=== PATIENT | male | born 1935 | race Caucasian/White ===

== ENCOUNTER 2016-04-25 17:10 | Emergency (ER) | payer OTHER ==
[~2016-04-25] VITALS: Ht 167.6 cm; Wt 76.6 kg
[~2016-04-25 17:10] MED LIST: ARC10 PO; ASPI81TA28 PO; CLC100 PO; CLOP1TAB15 PO; CRAN1CAP3 PO; FLM4 PO; LPT/20 PO; RANI300C PO; TPRSR/25 PO; TRIA0.1C20 TOP
[2016-04-25 17:14] VITALS: Ht 167.6 cm; Wt 76.6 kg
[2016-04-25] MEDS ORDERED: PRS5 PO (17:45)
[2016-04-25 18:37] LABS: URINE APPEARANCE CLEAR (CLEAR); URINE BILIRUBIN NEG (NEG); URINE COLOR YELLOW; URINE EPITHELIAL CELL AUTO >30 /lpf (0-5); URINE NITRITE NEG (NEG); URINE SPECIFIC GRAVITY 1.012 (1.000-1.030); UROBILINOGEN NEG (NEG); ZZUR CULT IF INDIC CLEAN CATCH NO
[2016-04-25 18:41] LABS: MANUAL MICROSCOPIC REQUIRED? NO; REVIEW REQ? YES
[2016-04-25 19:04] LABS: BENZODIAZEPINE, URINE NEG (NEG); COCAINE,URINE NEG (NEG); PHENCYCLIDINE, URINE NEG (NEG)
--- NOTE | 2016-04-25 19:09 | DIAGNOSTIC IMAGING REPORT ---
HEAD CT NONCONTRAST CT DOSE: 687.98 mGy.cm HISTORY: hallucinations TECHNIQUE: Multiaxial CT images of the head were performed without the use of intravenous contrast. Automated exposure control was utilized for this study. Comparison: Head CT 12/06/2015. Findings: The paranasal sinuses and mastoid air cells are clear. The calvarium and skull base are intact. There is no mass, hematoma, midline shift, acute infarct. White matter hypodensity is nonspecific but suggestive of microvascular ischemic change. The ventricles and sulci demonstrate mild age-related involutional changes. Impression: No significant change compared to the prior study. No acute intracranial abnormality. Electronically signed by: Luis Felipe Matta M.D. 04/25/2016 7:07 PM Dictated Date/Time: 04/25/2016 7:02 PM
[2016-04-25 19:18] LABS: BASO % 0.2 %; BASO ABS # 0.01 K/uL (0-0.2); COMPLETE YES; EOS % 0.4 %; HEMATOCRIT 36.9 % (42-52); IG% 0.4 %; LYMPH % 41.4 %; MEAN CELL VOLUME 92.5 fL (80-100); MEAN CORPUSCULAR HEMOGLOBIN 31.8 pg (25-34); MEAN CORPUSCULAR HGB CONC 34.4 g/dl (32-36); MEAN PLATELET VOLUME 10.2 fL (7.4-10.4); MONO % 14.5 %; NEUT % 43.1 %; PLATELET COUNT 175 K/uL (130-400); RED BLOOD COUNT 3.99 M/uL (4.7-6.1); WHITE BLOOD COUNT 4.83 K/uL (4.8-10.8)
[2016-04-25 19:39] LABS: ACETAMINOPHEN < 2 ug/ml (10-30)
[2016-04-25 19:42] LABS: BUN/CREATININE RATIO 7.4 (10-20); CREATININE 1.7 mg/dl (0.60-1.40); POTASSIUM 3.8 mmol/L (3.5-5.1)
[2016-04-25 19:52] LABS: ALB/GLOB RATIO 1.1 (0.9-2); THYROID STIMULATING HORMONE 1.15 uIu/ml (0.300-4.500)
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
[2016-04-26 01:04] VITALS: BP 122/81; PULSE 94; TEMP 36.7; O2SAT 96
[2016-04-29 19:35] LABS: SYNTHETIC CANNABINOIDS QL URIN NEGATIVE (Negative)
[2016-07-05] MEDS ORDERED: QUET1TAB32 PO (08:03)
[2016-07-05] MEDS ORDERED: FINA5TAB PO (08:03)
[2016-07-05] MEDS ORDERED: CLOP1TAB15 PO (08:03)
[2016-07-05] MEDS ORDERED: ASPCH81X PO (08:03)
[2016-07-05] MEDS ORDERED: DOCU100T7 PO (08:03)
[2016-07-05] MEDS ORDERED: VITAMIN C PO (08:03)
[2016-07-05] MEDS ORDERED: ATOR-22 PO (08:03)
[2016-07-05] MEDS ORDERED: DONE10TA12 PO (08:03)
[2016-07-11] MEDS ORDERED: BROM1SOL8 (07:18)
[2016-07-11] MEDS ORDERED: PRDFOPS (07:18)
[2016-07-11] MEDS ORDERED: OFLO0.3S4 (07:18)
[2016-07-20] MEDS ORDERED: BROM0.0911 OPL (09:37)
[2016-07-20] MEDS ORDERED: PRED1SUS OPL (09:37)
== END 2016-04-26 01:05 ==
LOC: C.EDB 17:11 → C.EDA 04-26 01:05
DX: R45.851 Suicidal ideations (principal); R44.0 Auditory hallucinations; R44.1 Visual hallucinations; I10 Essential (primary) hypertension; E78.00 Pure hypercholesterolemia, unspecified; I25.10 Atherosclerotic heart disease of native coronary artery without angina pectoris; Z95.0 Presence of cardiac pacemaker; Z98.890 Other specified postprocedural states; Z79.82 Long term (current) use of aspirin; Z79.899 Other long term (current) drug therapy; Z88.0 Allergy status to penicillin; Z88.2 Allergy status to sulfonamides; Z88.5 Allergy status to narcotic agent; Z91.040 Latex allergy status; Z80.9 Family history of malignant neoplasm, unspecified; Z82.49 Family history of ischemic heart disease and other diseases of the circulatory system

== ENCOUNTER 2016-06-30 10:25 | Emergency (ER) | payer OTHER ==
[~2016-06-30 10:25] MED LIST changes: +PRS5 PO
[2016-06-30 10:31] VITALS: TEMP 36.6
[2016-06-30] MEDS ORDERED: TAMS0.4C38 PO (11:10)
[2016-06-30] MEDS ORDERED: DOCU-94 PO (11:10)
[2016-06-30] MEDS ORDERED: TRMCR130WC TOP (11:10)
[2016-06-30] MEDS ORDERED: NMN10 PO (11:10)
[2016-06-30] MEDS ORDERED: VITACAP26 PO (11:10)
[2016-06-30] MEDS ORDERED: QUET5TAB PO (11:12)
[2016-06-30] MEDS ORDERED: ASCA500 PO (11:13)
--- NOTE | 2016-06-30 11:34 | DIAGNOSTIC IMAGING REPORT ---
HEAD CT NONCONTRAST CT DOSE: 537.48 mGy.cm HISTORY: Mental status change near syncope TECHNIQUE: Multiaxial CT images of the head were performed without the use of intravenous contrast. Comparison: 04/25/2016 Findings: The paranasal sinuses and mastoid air cells are clear. The calvarium and skull base are intact. The ventricles and sulci are within normal limits. There is no mass, hematoma, midline shift, or acute infarct. Age-related chronic small vessel change Impression: No acute intracranial abnormality. Stable age-related chronic small vessel change Electronically signed by: Natan Mary M.D. 06/30/2016 11:32 AM Dictated Date/Time: 06/30/2016 11:32 AM
--- NOTE | 2016-06-30 11:35 | DIAGNOSTIC IMAGING REPORT ---
CHEST 1 VW FRONT-NOT PORTABLE CLINICAL HISTORY: near syncope dyspnea COMPARISON STUDY: 04/13/2014 FINDINGS: Lungs are clear. No evidence for cardiac enlargement. Bipolar cardiac pacemaker. IMPRESSION: No acute process. Electronically signed by: Natan Mary M.D. 06/30/2016 11:34 AM Dictated Date/Time: 06/30/2016 11:33 AM
[2016-06-30 11:44] LABS: BASO % 0.2 %; BASO ABS # 0.01 K/uL (0-0.2); COMPLETE YES; EOS % 0.4 %; HEMATOCRIT 37.5 % (42-52); IG% 2.3 %; LYMPH % 35.7 %; LYMPH ABS # 1.73 K/uL (1.2-3.4); MEAN CELL VOLUME 92.6 fL (80-100); MEAN CORPUSCULAR HEMOGLOBIN 30.9 pg (25-34); MEAN CORPUSCULAR HGB CONC 33.3 g/dl (32-36); MEAN PLATELET VOLUME 9.8 fL (7.4-10.4); MONO % 14.7 %; NEUT % 46.7 %; PLATELET COUNT 152 K/uL (130-400); RED BLOOD COUNT 4.05 M/uL (4.7-6.1); WHITE BLOOD COUNT 4.84 K/uL (4.8-10.8)
--- NOTE | 2016-06-30 11:44 | EMERGENCY ROOM VISIT NOTE ---
History Report prepared by Nuzhat: Lauren Flaherty Under the Supervision of: Dr. Phuong Schwab D.O. First contact with patient: 10:28 Chief Complaint: SYNCOPE (NEAR SYNCOPE) Stated Complaint: NER SYNCOPE History of Present Illness The patient is a 80 year old male who presents to the Emergency Room with complaints of a sudden episode of near-syncope that occurred 45 minutes MOLD BUNCH TRIMMER. The patient came to the ED via ambulance. Per the patient's daughter, the patient has dementia. The patient states that he was standing and leaning against the wall at the [facility] this morning when he became lightheaded and diaphoretic. The patient's vision then became cloudy and he felt like he was going to experience syncope. He sat down and did not experience LOC. The patient states that he feels well now, but his vision is "still not right." He adds that he is supposed to have cataract surgery done at the end of this month. He denies experiencing any headaches or chest pain prior to becoming lightheaded. He also denies fevers, abdominal pain, nausea, and vomiting. The patient ate breakfast this morning around 0730. The patient states that he has experienced similar symptoms multiple times in the past. He is unsure of how often the episodes happen. He is also experiencing increased lachrymation and rhinorrhea. The patient states that his bowel movements have been normal. The patient states that he was seen in the ED in March for "loud music" in his right ear. The patient's daughter states that the patient went to [facility] for a psych evaluation at the beginning of April for visual and auditory hallucinations. The patient spent one week there and was started on new medications. He was experiencing his current symptoms at that time too, but he did not tell the doctors. The patient states that they gave him a pill and the pill relieved all of his symptoms. He adds that he has been experiencing problems with his bilateral ears since he was little. The patient's daughter states that the patient is on a psych medication that was a combined pill, but one month ago the patient's doctor the two pills and he takes them individually now. The patient's daughter manages his medications. The patient's daughter adds that the patient has been complaining of dizziness and lightheadedness for a long time. He has been worked up for his symptoms in the past. The patient's daughter states that the patient has a pacemaker in place, which was originally placed in 2007, but a new one was put in last July. She suspects that he is experiencing orthostatic hypotension. The patient was an alcoholic for years and formerly smoked heavily, but his daughter reports that he has not smoked or drank alcohol since 1973. Source of History: patient, family (daughter) Onset: 45 minutes MOLD BUNCH TRIMMER Position: other (global) Quality: other (near-syncope) Timing: other (sudden episode) Associated Symptoms: + diaphoresis, No LOC, No abdominal pain, No chest pain , No fevers, No headache, No nausea, No vomiting Note: lightheadedness, cloudy vision, increased lachrymation, rhinorrhea Review of Systems See HPI for pertinent positives & negatives. A total of 10 systems reviewed and were otherwise negative. Past Medical & Surgical Medical Problems: (1) CAD (coronary artery disease) (2) High cholesterol (3) History of orthopedic surgery (4) HTN (hypertension) (5) Pacemaker Surgical Problems: (1) H/O hernia repair (2) Hx of cardiac cath Family History Cancer Heart disease Hypertension Social History Smoking Status: Never Smoker Alcohol Use: none Marital Status: Housing Status: lives alone Occupation Status: retired Current/Historical Medications Scheduled Ascorbic Acid (Vitamin C), 1 TAB PO DAILY Aspirin (Aspirin Ec), 81 MG PO DAILY Atorvastatin (Atorvastatin Calcium), 20 MG PO DAILY Clopidogrel (Plavix), 75 MG PO DAILY Docusate Sodium (Colace), 1 CAP PO DAILY Donepezil HCl (Donepezil HCl), 10 MG PO DAILY Finasteride (Finasteride), 5 MG PO DAILY Memantine (Namenda), 10 MG PO DAILY Metoprolol Succinate (Metoprolol Succinate ER), 25 MG PO DAILY Quetiapine Fumarate (Seroquel), 1 TAB PO DAILY Ranitidine Hcl (Ranitidine Hcl), 300 MG PO DAILY Tamsulosin Hcl (Flomax), 0.4 MG PO DAILY Triamcinolone Acet (Aristocort 0.1%), 1 APPLN TOP UD Allergies Coded Allergies: Codeine (Verified Allergy, Unknown, 04/25/16) Latex1 -Allergic Contact Dermititis (Verified Allergy, Unknown, 04/25/16) Penicillins (Verified Allergy, Unknown, 04/25/16) Sulfa Drugs (Verified Allergy, Unknown, 04/25/16) Physical Exam Vital Signs Date Time Temp Pulse Resp B/P Pulse Ox O2 Delivery O2 Flow Rate FiO2 06/30/16 15:01 76 18 141/83 99 06/30/16 12:40 89 18 159/84 98 Room Air 06/30/16 10:50 79 06/30/16 10:31 36.6 76 18 172/113 100 Room Air Physical Exam GENERAL: alert, well appearing, well nourished, no distress, non-toxic EYE EXAM: normal conjunctiva, increased lachrymation, PERRL and EOM's grossly intact NOSE: mild clear rhinorrhea OROPHARYNX: no exudate, no erythema, lips, buccal mucosa, and tongue normal and mucous membranes are moist NECK: supple, no nuchal rigidity, no adenopathy, non-tender LUNGS: Clear to auscultation. Normal chest wall mechanics HEART: device present left anterior superior chest wall, no murmurs, S1 normal and S2 normal ABDOMEN: abdomen soft, non-tender, normo-active bowel sounds, no masses, no rebound or guarding. BACK: Back is symmetrical on inspection and there is no deformity, no midline tenderness, no CVA tenderness. SKIN: no rashes and no bruising UPPER EXTREMITIES: upper extremities are grossly normal. LOWER EXTREMITIES: No pitting edema. NEURO EXAM: Normal sensorium, cranial nerves II-XII intact, normal speech, no facial droop, no weakness of arms, no weakness of legs. No ataxia. No drift. Finger to nose intact. Medical Decision & Procedures ER Provider Diagnostic Interpretation: Xray results per the radiologist and my interpretation. Other results have been interpreted by the radiologist and reviewed by me. CHEST 1 VW FRONT-NOT PORTABLE IMPRESSION: No acute process. Electronically signed by: Natan Mary M.D. 06/30/2016 11:34 AM Dictated Date/Time: 06/30/2016 11:[address] NONCONTRAST Impression: No acute intracranial abnormality. Stable age-related chronic small vessel change Electronically signed by: Natan Mary M.D. 06/30/2016 11:32 AM Dictated Date/Time: 06/30/2016 11:32 AM Laboratory Results 06/30/16 11:25 Red Blood Count 4.05, Mean Corpuscular Volume 92.6, Mean Corpuscular Hemoglobin 30.9, Mean Corpuscular Hemoglobin Concent 33.3, Mean Platelet Volume 9.8, Neutrophils (%) (Auto) 46.7, Lymphocytes (%) (Auto) 35.7, Monocytes (%) (Auto) 14.7, Eosinophils (%) (Auto) 0.4, Basophils (%) (Auto) 0.2, Neutrophils # (Auto ) 2.26, Lymphocytes # (Auto) 1.73, Monocytes # (Auto) 0.71, Eosinophils # (Auto ) 0.02, Basophils # (Auto) 0.01 06/30/16 11:25 Test 06/30/16 11:00 06/30/16 11:25 06/30/16 12:40 Influenza Type A Antigen Neg for Influ A (NEG) Influenza Type B Antigen Neg for Influ B (NEG) White Blood Count 4.84 K/uL (4.8-10.8) Red Blood Count 4.05 M/uL (4.7-6.1) Hemoglobin 12.5 g/dL (14.0-18.0) Hematocrit 37.5 % (42-52) Mean Corpuscular Volume 92.6 fL (80-100) Mean Corpuscular Hemoglobin 30.9 pg (25-34) Mean Corpuscular Hemoglobin Concent 33.3 g/dl (32-36) Platelet Count 152 K/uL (130-400) Mean Platelet Volume 9.8 fL (7.4-10.4) Neutrophils (%) (Auto) 46.7 % Lymphocytes (%) (Auto) 35.7 % Monocytes (%) (Auto) 14.7 % Eosinophils (%) (Auto) 0.4 % Basophils (%) (Auto) 0.2 % Neutrophils # (Auto) 2.26 K/uL (1.4-6.5) Lymphocytes # (Auto) 1.73 K/uL (1.2-3.4) Monocytes # (Auto) 0.71 K/uL (0.11-0.59) Eosinophils # (Auto) 0.02 K/uL (0-0.5) Basophils # (Auto) 0.01 K/uL (0-0.2) RDW Standard Deviation 45.2 fL (36.4-46.3) RDW Coefficient of Variation 13.3 % (11.5-14.5) Immature Granulocyte % (Auto) 2.3 % Immature Granulocyte # (Auto) 0.11 K/uL (0.00-0.02) Anion Gap 7.0 mmol/L (3-11) Estimated GFR () 49.5 Estimated GFR (Non- 42.7 BUN/Creatinine Ratio 8.1 (10-20) Calcium Level 9.1 mg/dl (8.5-10.1) Total Bilirubin 0.4 mg/dl (0.2-1) Aspartate Amino Transf (AST/SGOT) 37 U/L (15-37) Alanine Aminotransferase (ALT/SGPT) 46 U/L (12-78) Alkaline Phosphatase 96 U/L (45-117) Troponin I < 0.015 ng/ml (0-0.045) Total Protein 7.5 gm/dl (6.4-8.2) Albumin 3.9 gm/dl (3.4-5.0) Globulin 3.6 gm/dl (2.5-4.0) Albumin/Globulin Ratio 1.1 (0.9-2) Thyroid Stimulating Hormone (TSH) 0.960 uIu/ml (0.300-4.500) Urine Color YELLOW Urine Appearance CLEAR (CLEAR) Urine pH 8.0 (4.5-7.5) Urine Specific [place] 1.015 (1.000-1.030) Urine Protein NEG (NEG) Urine Glucose (UA) NEG (NEG) Urine Ketones NEG (NEG) Urine Occult Blood TRACE (NEG) Urine Nitrite NEG (NEG) Urine Bilirubin NEG (NEG) Urine Urobilinogen NEG (NEG) Urine Leukocyte Esterase NEG (NEG) Urine WBC (Auto) 1-5 /hpf (0-5) Urine RBC (Auto) 0-4 /hpf (0-4) Urine Hyaline Casts (Auto) 5-10 /lpf (0-5) Urine Epithelial Cells (Auto) >30 /lpf (0-5) Urine Bacteria (Auto) NEG (NEG) Laboratory results per my review. ECG Indication: syncope Rate (beats per minute): 63 Rhythm: other (AV paced) Findings: left axis deviation, other (prolonged QRS and QTc consistent with pacemaker) Comparison ECG Date: 04/13/2014 Change: no significant change ED Course 1030: The patient was evaluated in room A9. A complete history and physical exam was performed. 1205: I reassessed the patient. He is still resting comfortably and he has not complaints. The patient's family states that the dizzy spells have been going on for years and today does not seem any different than previous episodes. 1443: Repeat bedside evaluation unchanged. Patient denies any complaints, was able to ambulate independently without incident. Vital signs stable, patient remains hypertensive but within acceptable limits. Bedside discussion with family regarding patient's condition. They would like to take patient home and follow-up as an outpatient. One of them does intend to stay with the patient and his apartment tonight. Discussed with him symptoms to watch and return for , need for close follow-up with family doctor, they verbalized understanding were agreeable with plan. Medical Decision Differential diagnosis: Etiologies such as CVA/TIA, ACS, dehydration, electrolyte abnormality, as well as others were entertained. Pt well appearing here, no recurrent sx. Family felt strongly sx similar to prior events which have been going on for several years. They feel likely related to position changes, dehydration. Offered admission, family declined. Doubt occult infection, acs, dysrhythmia, dissection, bacteremia/sepsis, tamponade, effusion, ARF, cva/tia, sah, occult trauma. Pt ambulated here without incident, family would like to take him home, they plan on staying with him tonight. Discussed close f/u with PCP, sx to watch/return for, they verbalized understanding and were agreeable with plan. Impression Primary Impression: Near syncope Scribe Attestation The scribe's documentation has been prepared under my direction and personally reviewed by me in its entirety. I confirm that the note above accurately reflects all work, treatment, procedures, and medical decision making performed by me. Departure Information Dispostion Home / Self-Care Referrals Cristin Mcrae D.O. (PCP) Forms HOME CARE DOCUMENTATION FORM, IMPORTANT VISIT INFORMATION Patient Instructions My [facility] Additional Instructions Please continue regular medications as prescribed. Please call and follow-up family doctor. Please eat and drink regularly. If you have any new or concerning symptoms, please return to the emergency room. Please try to change positions very slowly to help prevent any more episodes of lightheadedness or dizziness. If you have any recurrences of these symptoms, please sit down or lay down immediately and call for help. If you develop any chest pain, trouble breathing, fevers, vomiting, swelling in the legs, headaches, vision changes, or any other concerning symptoms, please return to the emergency room.
[2016-06-30 11:53] LABS: ALT/SGPT 46 U/L (12-78); BLOOD UREA NITROGEN 12 mg/dl (7-18); BUN/CREATININE RATIO 8.1 (10-20); CALCIUM 9.1 mg/dl (8.5-10.1); CARBON DIOXIDE 30 mmol/L (21-32); CHLORIDE 105 mmol/L (98-107); GLUCOSE 112 mg/dl (70-99); POTASSIUM 3.8 mmol/L (3.5-5.1); SODIUM 142 mmol/L (136-145)
[2016-06-30 12:03] LABS: ALB/GLOB RATIO 1.1 (0.9-2); ALKALINE PHOSPHATASE 96 U/L (45-117); AST/SGOT 37 U/L (15-37)
[2016-06-30 13:36] LABS: URINE APPEARANCE CLEAR (CLEAR); URINE BILIRUBIN NEG (NEG); URINE COLOR YELLOW; URINE NITRITE NEG (NEG); URINE SPECIFIC GRAVITY 1.015 (1.000-1.030); UROBILINOGEN NEG (NEG)
[2016-06-30 13:37] LABS: MANUAL MICROSCOPIC REQUIRED? NO; REVIEW REQ? YES
[2016-06-30 14:27] LABS: URINE EPITHELIAL CELL AUTO >30 /lpf (0-5)
[2016-06-30 14:28] LABS: ZZUR CULT IF INDIC CLEAN CATCH NO
[2016-06-30 15:01] VITALS: BP 141/83; PULSE 76; O2SAT 99
[2016-07-05] MEDS ORDERED: DOCU100T7 PO (08:03)
[2016-07-05] MEDS ORDERED: DONE10TA12 PO (08:03)
[2016-07-05] MEDS ORDERED: ATOR-22 PO (08:03)
[2016-07-05] MEDS ORDERED: VITAMIN C PO (08:03)
[2016-07-05] MEDS ORDERED: CLOP1TAB15 PO (08:03)
[2016-07-05] MEDS ORDERED: QUET1TAB32 PO (08:03)
[2016-07-05] MEDS ORDERED: ASPCH81X PO (08:03)
[2016-07-05] MEDS ORDERED: FINA5TAB PO (08:03)
[2016-07-11] MEDS ORDERED: BROM1SOL8 (07:18)
[2016-07-11] MEDS ORDERED: OFLO0.3S4 (07:18)
[2016-07-11] MEDS ORDERED: PRDFOPS (07:18)
[2016-07-20] MEDS ORDERED: BROM0.0911 OPL (09:37)
[2016-07-20] MEDS ORDERED: PRED1SUS OPL (09:37)
== END 2016-06-30 15:02 | disposition home or self-care (01) ==
LOC: EDBD 10:25 → C.EDA 10:25
DX: R55 Syncope and collapse (principal); I10 Essential (primary) hypertension; E78.00 Pure hypercholesterolemia, unspecified; I25.10 Atherosclerotic heart disease of native coronary artery without angina pectoris; Z95.0 Presence of cardiac pacemaker; Z98.890 Other specified postprocedural states; Z79.82 Long term (current) use of aspirin; Z79.899 Other long term (current) drug therapy; Z88.0 Allergy status to penicillin; Z88.2 Allergy status to sulfonamides; Z88.5 Allergy status to narcotic agent; Z91.040 Latex allergy status; Z80.9 Family history of malignant neoplasm, unspecified; Z82.49 Family history of ischemic heart disease and other diseases of the circulatory system

== ENCOUNTER → 2016-07-11 | Day surgery (SDC) | payer OTHER ==
[2016-07-05 08:04] VITALS: Ht 172.7 cm; Wt 75.0 kg
[~2016-07-11] VITALS: Ht 172.7 cm; Wt 75.0 kg
[~2016-07-11] MED LIST changes: +500ML BSS 0.3ML EPI 1:1000PF IRRIG ONE; +ACETAMINOPHEN 325 MG TAB PO PRN; +AMVISC PLUS 0.8ML SYRINGE INT OCU ONE; -ARC10 PO; +ASPCH81X PO; -ASPI81TA28 PO; +ATOR-22 PO; +ATROPINE SULFATE 0.1 MG/ML 5ML SYR IV PRN; +BROM0.0911 OPL; +BROM1SOL8; +BSS FLUSH ONE; -CLC100 PO; -CRAN1CAP3 PO; +DOCU100T7 PO; +DONE10TA12 PO; +ENDOCOAT 0.85ML SYRINGE INT OCU ONE; +EpHEDrine SULFATE INJ 50 MG/ML AMP IV PRN; +EpINEphrine INJ 1MG/ML AMP 1 MG/ML AMP ONE; +FINA5TAB PO; -FLM4 PO; +LACTATED RINGER'S 1000ML 500 ML IV SCH; +LIDOCAINE 4% OP SOLN DROP CHARGE ONE; +LIDOCAINE 4% OP SOLN DROP CHARGE OPL SCH; +LIDOCAINE HCL 1% MPF 2 ML VIAL ONE; -LPT/20 PO; +MIDAZOLAM HCL 1 MG/ML 2ML VIAL ONE; +MIX: 4ML BSS 1ML EPI 1:1000 PF TOP ONE; +MOXIFLOXACIN OPH SOLN PER DROP CHARGE ONE; +NMN10 PO; +OFLO0.3S4; +POVIDONE-IODINE OP SOLN 30 ML BTL ONE; +PRDFOPS; +PRED1SUS OPL; +PROPARACAINE 0.5% OP SOLN PER DROP CHARGE OPL SCH; -PRS5 PO; +QUET1TAB32 PO; +TAMS0.4C38 PO; +TOBRAMYCIN/DEXAMETHASONE OPH OINT PER APPLN CHARGE ONE; -TRIA0.1C20 TOP; +VITAMIN C PO
[2016-07-11] MEDS: PHENYLEPHRINE HCL 10% OP SOLN 5 ML BTL OPL SCH ×3 (07:31→07:41)
--- NOTE | 2016-07-11 07:31 | History & Physical Bridge - SC ---
H&P Re-Evaluation Bridge Note: I have examined the patient, reviewed the History & Physical and in the interval since the performance of the History & Physical I have noted the following changes of clinical significance: No changes noted
[2016-07-11] MEDS: TROPICAMIDE 1% OP SOLN PER DROP CHARGE OPL SCH ×3 (07:32→07:42)
[2016-07-11] MEDS: CYCLOPENTOLATE HCL 1% OP SOLN PER DROP CHARGE OPL SCH ×3 (07:33→07:43)
[2016-07-11] MEDS: MOXIFLOXACIN OPH SOLN PER DROP CHARGE OPL SCH ×3 (07:35→07:44)
--- NOTE | 2016-07-11 08:34 | [facility] Post Operative Brief Note ---
Immediate Operative Summary Operative Date Jul 11, 2016. Pre-Operative Diagnosis Cataract Left Eye Post-Operative Diagnosis Same Procedure(s) Performed Left Cataract Phacoemulsification With Intraocular Lens Implant Surgeon Dr. Cedeno Organizational Research Consultant Surgeon(s) None Estimated Blood Loss 0 Findings left cataract Specimens None Complication(s) None Disposition
[2016-07-11 08:35] VITALS: TEMP 36.4
--- NOTE | 2016-07-11 08:36 | [facility] Operative Report ---
Operative Report Date of Service Jul 11, 2016. Operative Report Phaco with monofocal IOL DATE OF OPERATION: 07/11/16 PREOPERATIVE DIAGNOSIS: Senile nuclear cataract, left eye POSTOPERATIVE DIAGNOSIS: Senile nuclear cataract, left eye PROCEDURE PERFORMED: Phacoemulsification with intraocular lens implantation, left eye SURGEON: Dr. Chris Cedeno ANESTHESIA: Topical with 1% intracameral lidocaine and monitored anesthesia care COMPLICATIONS: None DESCRIPTION OF PROCEDURE: After positively identifying the patient both verbally and by wristband in the preoperative area, the left eye was marked as the operative eye. The patient was then brought back to the operating room by the anesthesia and nursing staff where they were given a drop of Lidocaine and betadine into the operative eye. They were then sterilely prepped and draped in the standard fashion typical for ophthalmic surgery. Steri-strips were placed along the upper eyelids to keep the lashes back, and a lid speculum was placed into the operative eye. At this point, a documented time out was performed with members of the ophthalmology, nursing, and anesthesia staffs all agreeing upon the correct patient, correct location for surgery, correct procedure, and correct type and power of intraocular lens to be implanted. The microscope was then swung into position. First, a paracentesis wound was made using a sideport blade. Then, in sequence, 1% preservative-free lidocaine followed by Endocoat viscoelastic was injected into the anterior chamber. Next , the main incision was made with a keratome blade in triplanar fashion. A Malyugin ring was inserted due to poor pupil dilation. A sharp cystotome was introduced into the eye and used to create a tear in the anterior capsule, which was directed into a continuous curvilinear capsulorrhexis using Utrata forceps. Hydrodissection was then performed with BSS on a flat-tip cannula. Next, the phacoemulsification handpiece was introduced into the eye and used to remove the nucleus in a pahtwd-[id number] fashion. This was done without complication and then the irrigation-aspiration handpiece was introduced into the eye and used to remove all remaining cortical and epinuclear material. Amvisc was then injected into the anterior chamber as well as into the capsular bag and using the lens injector system, an MX60 20.5 D lens, serial number [id number], and expiration date 03/2019 was injected into the capsular bag and rotated into the correct position. The Malyugin ring was removed. Next, the irrigation-aspiration handpiece was used to remove all remaining Amvisc. BSS was used to hydrate the main wound, and then BSS was injected into the paracentesis site to reach physiologic pressure and then the main wound was checked and found to be watertight. The patient was given drops of Vigamox and Tobradex ointment into the operative eye, and then the surrounding area was cleaned and dried. A clear plastic shield was placed over the eye and the patient was then sat up and taken from the operating room by the anesthesia staff having tolerated the procedure well and suffering no complications. DISPOSITION: The patient was returned to the recovery room in stable condition. I attest to the content of the Intraoperative Record and any orders documented therein. Any exceptions are noted below.
--- NOTE | 2016-07-11 08:37 | Discharge Instructions-SurgCtr ---
Discharge Instructions Date of Service Jul 11, 2016. Visit Reason for Visit: Cataract Left Eye Discharge Discharge Diagnosis / Problem: left cataract Discharge Goals Goal(s): Decrease discomfort, Improve function Activity Recommendations Activity Limitations: as noted below Anesthesia . Post Anesthesia Instructions: If you have had General Anesthesia or IV Sedation: * Do not drive today. * Resume driving when surgeon permits. * Do not make important decisions or sign legal documents today. * Call surgeon for: 1. Temperature elevations greater than 101 degrees F. 2. Uncontrollable pain. 3. Excessive bleeding. 4. Persistent nausea and vomiting. 5. Medication intolerance (nausea, vomiting or rash). * For nausea and vomiting use only clear liquids such as: tea, soda, bouillon until nausea subsides, then gradually increase diet as tolerated. * If you have any concerns or questions, call your surgeon's office. If physician is unavailable and it is an emergency, call 911 or go to the nearest emergency room. . Instructions / Follow-Up Instructions / Follow-Up ACTIVITY RECOMMENDATIONS: * Light activities. * You may walk outside, read, watch television. * You may notice redness on the white part of the eye and some blurry vision - this is normal. MEDICATIONS: Resume previous medications unless instructed otherwise by your surgeon. Start all eye drops at 10:30 am today: * Eye drops (today): Prednisone - one drop in operative eye every 2 hours while awake Ofloxacin - one drop in operative eye every 2 hours while awake Bromfenac - one drop in operative eye daily SPECIAL CARE INSTRUCTIONS: * Tape plastic shield over eye to sleep at night. Call your doctor at with any concerns or problems. FOLLOW UP VISIT: Follow-up with Dr Cedeno at [facility] as scheduled. Diet Recommendations Home Diet: no limitations Procedures Procedures Performed: Left Cataract Phacoemulsification With Intraocular Lens Implant Pending Studies Studies pending at discharge: no Medical Emergencies . Who to Call and When: Medical Emergencies: If at any time you feel your situation is an emergency, please call 911 immediately. . Non-Emergent Contact Non-Emergency issues call your: Surgeon . . "Provider Documentation" section prepared by Chris Cedeno.
--- NOTE | 2016-07-11 08:53 | Anesthesia Progress Nt - [facility] ---
Anesthesia Post Op Note Date & Time Jul 11, 2016 at 08:54 Vital Signs Pain Intensity: 0 Vital Signs Past 12 Hours Date Time Temp Pulse Resp B/P Pulse Ox O2 Delivery O2 Flow Rate FiO2 07/11/16 08:35 36.4 61 14 151/76 97 Room Air 07/11/16 07:19 36.4 63 16 129/79 99 Room Air Notes Mental Status: alert / awake / arousable, participated in evaluation Pt Amnestic to Procedure: Yes Nausea / Vomiting: adequately controlled Pain: adequately controlled Airway Patency, RR, SpO2: stable & adequate BP & HR: stable & adequate Hydration State: stable & adequate Anesthetic Complications: no major complications apparent
[2016-07-11 09:02] VITALS: PULSE 66; O2SAT 96
[2016-07-11 09:04] VITALS: BP 153/100
== END | disposition home or self-care (01) ==
LOC: X.SURG 06:59
PROVIDERS: ATTEND Ophthalmology
DX: H25.12 Age-related nuclear cataract, left eye (principal); H57.8 Other specified disorders of eye and adnexa

== ENCOUNTER → 2016-07-25 | Day surgery (SDC) | payer OTHER ==
[2016-07-20 09:39] VITALS: Ht 172.7 cm; Wt 75.0 kg
[~2016-07-25] VITALS: Ht 172.7 cm; Wt 75.0 kg
[~2016-07-25] MED LIST changes: -BROM1SOL8; -EpHEDrine SULFATE INJ 50 MG/ML AMP IV PRN; -LIDOCAINE 4% OP SOLN DROP CHARGE OPL SCH; +LIDOCAINE 4% OP SOLN DROP CHARGE OPR SCH; -OFLO0.3S4; -PRDFOPS; -PROPARACAINE 0.5% OP SOLN PER DROP CHARGE OPL SCH; +PROPARACAINE 0.5% OP SOLN PER DROP CHARGE OPR SCH
[2016-07-25] MEDS: PHENYLEPHRINE HCL 2.5% OP SOLN PER DROP CHARGE OPR SCH ×3 (07:01→07:10)
[2016-07-25] MEDS: TROPICAMIDE 1% OP SOLN PER DROP CHARGE OPR SCH ×3 (07:02→07:12)
[2016-07-25] MEDS: CYCLOPENTOLATE HCL 1% OP SOLN PER DROP CHARGE OPR SCH ×3 (07:03→07:13)
[2016-07-25] MEDS: MOXIFLOXACIN OPH SOLN PER DROP CHARGE OPR SCH ×3 (07:04→07:14)
--- NOTE | 2016-07-25 08:03 | [facility] Post Operative Brief Note ---
Immediate Operative Summary Operative Date Jul 25, 2016. Pre-Operative Diagnosis Cataract right eye Post-Operative Diagnosis same Procedure(s) Performed Right Cataract Phacoemulsification With Intraocular Lens Implant Surgeon Dr Cedeno Knitting Teacher Surgeon(s) 0 Estimated Blood Loss 0 Findings right cataract Specimens 0 Complication(s) None Disposition
[2016-07-25 08:04] VITALS: TEMP 36.6
--- NOTE | 2016-07-25 08:04 | [facility] Operative Report ---
Operative Report Date of Service Jul 25, 2016. Operative Report Phaco with monofocal IOL DATE OF OPERATION: 07/25/16 PREOPERATIVE DIAGNOSIS: Senile nuclear cataract, right eye POSTOPERATIVE DIAGNOSIS: Senile nuclear cataract, right eye PROCEDURE PERFORMED: Phacoemulsification with intraocular lens implantation, right eye SURGEON: Dr. Chris Cedeno ANESTHESIA: Topical with 1% intracameral lidocaine and monitored anesthesia care COMPLICATIONS: None DESCRIPTION OF PROCEDURE: After positively identifying the patient both verbally and by wristband in the preoperative area, the right eye was marked as the operative eye. The patient was then brought back to the operating room by the anesthesia and nursing staff where they were given a drop of Lidocaine and betadine into the operative eye. They were then sterilely prepped and draped in the standard fashion typical for ophthalmic surgery. Steri-strips were placed along the upper eyelids to keep the lashes back, and a lid speculum was placed into the operative eye. At this point, a documented time out was performed with members of the ophthalmology, nursing, and anesthesia staffs all agreeing upon the correct patient, correct location for surgery, correct procedure, and correct type and power of intraocular lens to be implanted. The microscope was then swung into position. First, a paracentesis wound was made using a sideport blade. Then, in sequence, 1% preservative-free lidocaine followed by Endocoat viscoelastic was injected into the anterior chamber. Next , the main incision was made with a keratome blade in triplanar fashion. A Malyugin ring was inserted due to poor pupil dilation. A sharp cystotome was introduced into the eye and used to create a tear in the anterior capsule, which was directed into a continuous curvilinear capsulorrhexis using Utrata forceps. Hydrodissection was then performed with BSS on a flat-tip cannula. Next, the phacoemulsification handpiece was introduced into the eye and used to remove the nucleus in a glbsit-yuw-[id number] fashion. This was done without complication and then the irrigation-aspiration handpiece was introduced into the eye and used to remove all remaining cortical and epinuclear material. Amvisc was then injected into the anterior chamber as well as into the capsular bag and using the lens injector system, an MX60 20.5 D lens, serial number [id number], and expiration date 02/2019 was injected into the capsular bag and rotated into the correct position. The Malyugin ring was removed. Next, the irrigation-aspiration handpiece was used to remove all remaining Amvisc. BSS was used to hydrate the main wound, and then BSS was injected into the paracentesis site to reach physiologic pressure and then the main wound was checked and found to be watertight. The patient was given drops of Vigamox and Tobradex ointment into the operative eye, and then the surrounding area was cleaned and dried. A clear plastic shield was placed over the eye and the patient was then sat up and taken from the operating room by the anesthesia staff having tolerated the procedure well and suffering no complications. DISPOSITION: The patient was returned to the recovery room in stable condition. I attest to the content of the Intraoperative Record and any orders documented therein. Any exceptions are noted below.
--- NOTE | 2016-07-25 08:05 | Discharge Instructions-SurgCtr ---
Discharge Instructions Date of Service Jul 25, 2016. Visit Reason for Visit: Right Cataract Discharge Discharge Diagnosis / Problem: right cataract Discharge Goals Goal(s): Decrease discomfort, Improve function Activity Recommendations Activity Limitations: as noted below Anesthesia . Post Anesthesia Instructions: If you have had General Anesthesia or IV Sedation: * Do not drive today. * Resume driving when surgeon permits. * Do not make important decisions or sign legal documents today. * Call surgeon for: 1. Temperature elevations greater than 101 degrees F. 2. Uncontrollable pain. 3. Excessive bleeding. 4. Persistent nausea and vomiting. 5. Medication intolerance (nausea, vomiting or rash). * For nausea and vomiting use only clear liquids such as: tea, soda, bouillon until nausea subsides, then gradually increase diet as tolerated. * If you have any concerns or questions, call your surgeon's office. If physician is unavailable and it is an emergency, call 911 or go to the nearest emergency room. . Instructions / Follow-Up Instructions / Follow-Up ACTIVITY RECOMMENDATIONS: * Light activities. * You may walk outside, read, watch television. * You may notice redness on the white part of the eye and some blurry vision - this is normal. MEDICATIONS: Resume previous medications unless instructed otherwise by your surgeon. Start all eye drops at 10 am today: * Eye drops (today): Prednisone - one drop in operative eye every 2 hours while awake Ofloxacin - one drop in operative eye every 2 hours while awake Bromfenac - one drop in operative eye daily SPECIAL CARE INSTRUCTIONS: * Tape plastic shield over eye to sleep at night. Call your doctor at with any concerns or problems. FOLLOW UP VISIT: Follow-up with Dr Cedeno at [facility] as scheduled. Diet Recommendations Home Diet: no limitations Procedures Procedures Performed: Right Cataract Phacoemulsification With Intraocular Lens Implant Pending Studies Studies pending at discharge: no Medical Emergencies . Who to Call and When: Medical Emergencies: If at any time you feel your situation is an emergency, please call 911 immediately. . Non-Emergent Contact Non-Emergency issues call your: Surgeon . . "Provider Documentation" section prepared by Chris Cedeno.
[2016-07-25 08:24] VITALS: BP 135/76; PULSE 61; O2SAT 96
--- NOTE | 2016-07-25 08:27 | Anesthesia Progress Nt - [facility] ---
Anesthesia Post Op Note Date & Time Jul 25, 2016 at 08:27 Vital Signs Pain Intensity: 0 Vital Signs Past 12 Hours Date Time Temp Pulse Resp B/P Pulse Ox O2 Delivery O2 Flow Rate FiO2 07/25/16 08:24 61 16 135/76 96 Room Air 07/25/16 08:04 36.6 61 16 150/75 95 Room Air 07/25/16 07:05 36.4 53 20 177/93 97 Room Air Notes Mental Status: alert / awake / arousable, participated in evaluation Pt Amnestic to Procedure: Yes Nausea / Vomiting: adequately controlled Pain: adequately controlled Airway Patency, RR, SpO2: stable & adequate BP & HR: stable & adequate Hydration State: stable & adequate Anesthetic Complications: no major complications apparent
== END | disposition home or self-care (01) ==
LOC: X.SURG 06:34
PROVIDERS: ATTEND Ophthalmology
DX: H25.11 Age-related nuclear cataract, right eye (principal); I10 Essential (primary) hypertension; F03.90 Unspecified dementia, unspecified severity, without behavioral disturbance, psychotic disturbance, mood disturbance, and anxiety; Z86.73 Personal history of transient ischemic attack (TIA), and cerebral infarction without residual deficits; Z88.0 Allergy status to penicillin; Z88.5 Allergy status to narcotic agent; Z98.890 Other specified postprocedural states; Z95.0 Presence of cardiac pacemaker; Z87.891 Personal history of nicotine dependence